=== PATIENT | male | born 1995 | race African-American/Black ===

== ENCOUNTER 2017-04-11 04:04 | Emergency (ER) | payer SELFPAY ==
[~2017-04-11] VITALS: Ht 177.8 cm; Wt 70.3 kg
[2017-04-11 04:11] VITALS: BP 148/70
--- NOTE | 2017-04-11 04:51 | PHYS DOC ---
Past Medical History Past Medical History: No Pertinent History Past Surgical History: Other Additional Past Surgical Histo: wisdom teeth Alcohol Use: None Drug Use: None Adult General Chief Complaint Chief Complaint: FLU SYMPTOM HPI HPI Patient is a 21 year old male who presents with complaint of cough, congestion , and body aches. Patient states that his symptoms started 2 days ago and have progressively worsened. Patient states that he is having headache and nasal congestion. Patient also states that he has had difficulty with eating but has been able to keep fluids down. Patient denies any known sick contacts. Patient denies any significant past medical history. Patient states that he has been taking [id number] naproxen and cough medicine with no relief in symptoms. Review of Systems Review of Systems Constitutional: Fever, chills[] Eyes: Denies change in visual acuity, redness, or eye pain [] HENT: Nasal congestion, sore throat[] Respiratory: Cough[] Cardiovascular: Denies chest pain or edema[] GI: Nausea, vomiting, denies abdominal pain[] : Denies dysuria or hematuria [] Musculoskeletal: Myalgias[] Integument: Denies rash or skin lesions [] Neurologic: Headache, denies focal weakness or sensory changes [] All other systems were reviewed and found to be within normal limits, except as documented in this note. Allergies Allergies Allergies Coded Allergies Type Severity Reaction Last Updated Verified No Known Drug Allergies 06/16/15 No Physical Exam Physical Exam Constitutional: Alert, afebrile, appears ill. [] HENT: Normocephalic, atraumatic, bilateral external ears normal, oropharynx moist, no oral exudates, nose normal. [] Eyes: PERRLA, EOMI, conjunctiva normal, no discharge. [] Neck: Normal range of motion, no tenderness, supple, no stridor. [] Cardiovascular: Tachycardia, regular rhythm, no murmur [] Lungs & Thorax: Bilateral breath sounds clear to auscultation [] Abdomen: Bowel sounds normal, soft, no tenderness, no masses, no pulsatile masses. [] Skin: Warm, dry, no erythema, no rash. [] Back: No tenderness, no CVA tenderness. [] Extremities: No tenderness, no cyanosis, no clubbing, ROM intact, no edema. [] Neurologic: Alert and oriented X 3, normal motor function, normal sensory function, no focal deficits noted. [] Current Patient Data Vital Signs Vital Signs Date Time Temp Pulse Resp B/P (MAP) Pulse Ox O2 Delivery O2 Flow Rate FiO2 04/11/17 04:11 99.2 99 22 98 Room Air 99.2 Lab Values Laboratory Tests Test 04/11/17 04:20 Influenza Type A Antigen Positive (NEGATIVE) Influenza Type B Antigen Negative (NEGATIVE) EKG EKG Not performed[] Radiology/Procedures Radiology/Procedures Not performed[] Course & Med Decision Making Course & Med Decision Making Pertinent Labs and Imaging studies reviewed. (See chart for details) The patient tested positive for influenza A. The patient will be started on Tamiflu and ibuprofen for continued outpatient treatment. Advise follow-up in 3- 4 days a primary doctor for reevaluation and return emergency department for any worsening symptoms. Patient voiced understanding and in agreement with treatment plan. Dragon Disclaimer Dragon Disclaimer This electronic medical record was generated, in whole or in part, using a voice recognition dictation system. Departure Departure Impression: Primary Impression: Influenza A Disposition: 01 HOME, SELF-CARE Condition: STABLE Referrals: NO PCP (PCP) Patient Instructions: Influenza, Adult Additional Instructions: Follow-up with your primary doctor in 3-4 days for reevaluation. Return to emergency department for any worsening symptoms. Scripts Ibuprofen (IBUPROFEN) 600 Mg Tablet 600 MG PO Q6HRS Y for INFLAMMATION, #30 TAB Prov: VEE CARL MD 04/11/17 Oseltamivir Phosphate (TAMIFLU) 75 Mg Capsule 1 CAP PO BID, #10 CAP Prov: VEE CARL MD 04/11/17 VEE CARL MD Apr 11, 2017 04:51
[2017-04-11 04:57] LABS: OBC FLU VALID
[2017-04-11] MEDS ORDERED: IBUP-1007 PO (05:04)
[2017-04-11] MEDS ORDERED: OSEL75CA PO (05:04)
[2017-04-11 08:35] LABS: NEGATIVE OBC STREP NEG; POSITIVE OBC STREP POS
== END 2017-04-11 04:59 | disposition home or self-care (01) ==
LOC: ER 04:04
DX: J09.X2 Influenza due to identified novel influenza A virus with other respiratory manifestations (principal)
CPT/HCPCS: 87070; 87804; 87880; 99284